=== PATIENT | male | born 1970 | race Hispanic/Latino ===

== ENCOUNTER 2020-10-11 20:15 | Emergency (ER) | payer OTHER ==
[2020-10-11 21:35] VITALS: O2SAT 99
--- NOTE | 2020-10-11 22:25 | ERPHSYRPT ---
- History of Present Illness Time Seen by Provider: 10/11/20 21:40 Source: patient Exam Limitations: no limitations Patient Subjective Stated Complaint: Patient states " I was climbing down off of my Semi and my left foot got stuck and I turned and I twisted my left knee and I heard it pop. I thought it would go away but the pain comntinues to get worse when I attempt to bear weight." Triage Nursing Assessment: Patient arrived to ED and ambulated back to room with bilateral crutches. Patient unable to bear weight to left lower extremity. Patient was independent with transfer to bed. Patient stated he went to [employer] and bought a brace and crutches. Knee brace noted to left lower extremity. Left knee noted to be swollen and knee appears to be placed on the side. + Pedal pulse noted to left lower extremity. Patient able to wiggle toes and feel sensation. Cap refill < 3 seconds. ROM is very limited R/T pain and discomfort. Patient states when he doesn't bear weight then the pain goes away but when he has to bear weight or move that is when the pain is almost unbearable. Physician History: Patient is a 50-year-old male presents to our ED with complaints of left knee pain and swelling. Patient states he was ambulating down a ladder connected to his truck. Patient planted his foot and twisted. Patient heard a pop. Patient went to a local store and bought an Abner wrap with a knee immobilizer. Patient states that time frame the knee was significantly swollen and painful. Patient took Tylenol Motrin for pain. Pain is well controlled at this time. No other injuries reported. Pain described as an ache that is localized. No radiation. Pain worse with weightbearing and flexion. Pain improved with rest. Patient is otherwise healthy. He voices no other complaints or concerns at this time. Method of Injury: twisted Occurred: just prior to arrival Quality: constant Severity of Pain-Max: moderate Severity of Pain-Current: mild Lower Extremities Pain: knee: left Modifying Factors: Improves With: movement Associated Symptoms: unable to bear weight Allergies/Adverse Reactions: No Known Drug Allergies Allergy (Unverified 10/11/20 21:35) Home Medications: Allopurinol 300 mg [Zyloprim 300 mg] 300 mg PO DAILY 10/11/20 [History] Amlodipine Besylate [Norvasc] 10 mg PO DAILY 10/11/20 [History] Lisinopril 40 mg PO DAILY 10/11/20 [History] Hx Tetanus, Diphtheria Vaccination/Date Given: Yes Hx Influenza Vaccination/Date Given: No Hx Pneumococcal Vaccination/Date Given: No Immunizations Up to Date: Yes Travel Risk - International Travel Have you traveled outside of the country in past 3 weeks: No (N) If Yes, where;: N - Coronavirus Screening Are you exhibiting any of the following symptoms?: No Close contact with a COVID-19 positive Pt in past 14-21 Days: No - Vaccine Status Have you recieved a Covid-19 vaccination: No - Review of Systems Constitutional: No Symptoms, No Fever, No Chills Eyes: No Symptoms Ears, Nose, & Throat: No Symptoms Respiratory: No Symptoms, No Cough, No Dyspnea Cardiac: No Symptoms, No Chest Pain, No Edema, No Syncope Abdominal/Gastrointestinal: No Symptoms, No Abdominal Pain, No Nausea, No Vomiting, No Diarrhea Genitourinary Symptoms: No Symptoms, No Dysuria Musculoskeletal: No Symptoms, No Back Pain, No Neck Pain Skin: No Symptoms, No Rash Neurological: No Symptoms, No Dizziness, No Focal Weakness, No Sensory Changes Psychological: No Symptoms Endocrine: No Symptoms Hematologic/Lymphatic: No Symptoms Immunological/Allergic: No Symptoms All Other Systems: Reviewed and Negative - Past Medical History Pertinent Past Medical History: Yes Neurological History: No Pertinent History ENT History: No Pertinent History Cardiac History: Hypertension Respiratory History: No Pertinent History Endocrine Medical History: No Pertinent History Musculoskeletal History: No Pertinent History GI Medical History: No Pertinent History History: No Pertinent History Psycho-Social History: No Pertinent History Male Reproductive Disorders: No Pertinent History Other Medical History: DX Gout - Past Surgical History Past Surgical History: No Neuro Surgical History: No Pertinent History Cardiac: No Pertinent History Respiratory: No Pertinent History Gastrointestinal: No Pertinent History Genitourinary: No Pertinent History Musculoskeletal: No Pertinent History Male Surgical History: No Pertinent History - Social History Smoking Status: Never smoker Exposure to second hand smoke: No Drug Use: none Patient Lives Alone: Yes - Nursing Vital Signs Nursing Vital Signs: Initial Vital Signs Temperature 98.7 F 10/11/20 21:34 Pulse Rate 103 H 10/11/20 21:34 Respiratory Rate 20 10/11/20 21:34 Blood Pressure 170/103 10/11/20 21:34 O2 Sat by Pulse Oximetry 99 10/11/20 21:34 Pain Scale Pain Intensity 2 - Physical Exam General Appearance: no apparent distress, alert Eyes, Ears, Nose, Throat Exam: moist mucous membranes Neck Exam: non-tender, supple Cardiovascular/Respiratory Exam: chest non-tender, normal breath sounds, regular rate/rhythm, no respiratory distress Gastrointestinal/Abdominal Exam: non-tender, guarding Back Exam: normal inspection, normal range of motion, No vertebral tenderness Hips Exam: bilateral: non-tender, normal inspection, normal range of motion, no evidence of injury Legs Exam: bilateral leg: non-tender, normal inspection, normal range of motion, no evidence of injury Knees Exam: right knee: non-tender, normal inspection, normal range of motion, no evidence of injury, left knee: pain, soft tissue tenderness, swelling, other (Left knee has a significant effusion. No abrasions no ecchymosis. No deformities. Extremities neurovascular intact distally. Compartments are soft. Cap refill less than 2 seconds.) Ankle Exam: bilateral ankle: non-tender, normal inspection, normal range of motion, no evidence of injury Foot Exam: bilateral foot: non-tender, normal inspection, normal range of motion, no evidence of injury Neuro/Tendon Exam: normal sensation, normal motor functions Mental Status Exam: alert, oriented x 3, cooperative Skin Exam: normal color, warm, dry SpO2 Interpretation: normal SpO2: 99 O2 Delivery: Room Air - Course Nursing assessment & vital signs reviewed: Yes - Radiology Exams Knee X-ray Interpretation: Interpreted by me (X-ray reveals advanced tricompartmental arthritis with a large knee effusion. Osteopenia. No fractures or dislocations. No other soft tissue abnormalities.) Ordered Tests: Active Orders 24 hr Category Date Time Status KNEE (1 OR 2 VIEW) Stat Exams 10/11/20 21:49 Taken - Progress Progress: improved Progress Note: Patient reassessed. He feels well. Patient claimed pain medication. Patient has crutches with him at this time. He also has his own knee immobilizer. Patient referred to orthopedic clinic. X-ray reveals significant knee arthritis knee effusion. No fractures or dislocations. Will discharge at this time [facility] follow-up 10/11/20 23:11 Counseled pt/family regarding: diagnosis, need for follow-up, rad results - Departure Departure Disposition: Home Clinical Impression: Knee sprain Condition: Stable Critical Care Time: No Referrals: DOCTOR,NO FAMILY [Primary Care Provider] - BRANDON GARCES [ACTIVE STAFF] - Additional Instructions: Discharge/Care Plan DOM GONZALEZ was seen on 10/11/20 in the Emergency Room. The patient was counseled regarding Diagnosis,Lab results, Imaging studies, need for follow up and when to return to the Emergency Room. Prescriptions given: Discharge Note I have spoken with the patient and/or caregivers. I have explained the patient's condition, diagnosis and treatment plan based on the information available to me at this time. I have answered the patient's and/or caregiver's questions and addressed any concerns. The patient and/or caregivers have as good understanding of the patient's diagnosis, condition and treatment plan as can be expected at this point. The vital signs have been stable. The patient's condition is stable and appropriate for discharge from the emergency department. The patient will pursue further outpatient evaluation with the primary care physician or other designated or consulting physician as outlined in the discharge instructions. The patient and/or caregivers are agreeable to this plan of care and follow-up instructions have been explained in detail. The patient and/or caregivers have received these instruction. The patient/and or caregivers are aware that any significant change in condition or worsening of symptoms should prompt an immediate return to this or the closest emergency department or call 911. Outpatient Orders: Ortho Referral Time Frame: 1 Day, Facility: [facility], Location: [facility]
[2020-10-12 01:05] VITALS: BP 148/88; PULSE 100
--- NOTE | 2020-10-13 06:20 | XRAY ---
Exam: 3 views of the left knee from 10/11/2020. Comparison: None. Indication: Twisting injury on 10/10/2020; complains of constant left knee pain. Findings: AP, oblique, and lateral radiographs of the left knee were obtained. I see no acute fracture or dislocation. There is a mild suprapatellar joint effusion on the lateral radiograph. There is slight lateral subluxation of the proximal left tibia with respect to the distal left femur on AP image, likely due to ligamentous laxity. There is mild narrowing of the medial compartment of the left knee joint space and moderate narrowing of the lateral compartment of the left knee joint space associated with osteophytes. There is marked narrowing of the patellofemoral joint. Prominent spurs are seen on both sides of the patellofemoral joint. Mild spurring is seen at the anterior superior margin of the left patella. There is also moderate hypertrophic spurring at the posterior margin of the condyles on the lateral image. Some vascular calcification is seen posterior to the left knee. Impression: 1. I see no acute left knee fracture or dislocation. 2. Mild suprapatellar left knee joint effusion. 3. Moderate to marked tricompartmental osteoarthritis of the left knee.
== END 2020-10-12 01:06 | disposition home or self-care (01) ==
LOC: ED 20:15
DX: S83.92XA Sprain of unspecified site of left knee, initial encounter (principal); M25.562 Pain in left knee; X50.1XXA Overexertion from prolonged static or awkward postures, initial encounter; Z79.899 Other long term (current) drug therapy
CPT/HCPCS: 73560; 99283